=== PATIENT | female | born 1985 | race Two or more races ===

== ENCOUNTER 2021-11-16 22:39 | Emergency (ER) | payer BC, OTHER ==
[~2021-11-16] VITALS: Ht 157.5 cm; Wt 47.2 kg
--- NOTE | 2021-11-16 23:40 | NUR ---
BIBS FOR C/O UPPER ABD PAIN, NAUSEA AND DIARRHEA X 5 DAYS. TO ER BED 3. PLACED ON MONITOR,. VSS
[2021-11-17] MEDS ORDERED: MAG HYDROX/AL HYDROX/SIMETH 30 ML UDC ONE (00:08)
[2021-11-17] MEDS ORDERED: FAMOTIDINE/PF INJ 20 MG/2 ML VIAL IV ONE (00:08)
[2021-11-17] MEDS: MAG HYDROX/AL HYDROX/SIMETH 30 ML UDC PO ONE (00:13)
[2021-11-17] MEDS: IV LR 1000 ML 1,000 ML IV ONE (00:13)
[2021-11-17] MEDS: FAMOTIDINE/PF INJ 20 MG/2 ML VIAL IV ONE (00:13)
[2021-11-17 00:57] LABS: BASOPHILS % (AUTO) 0.2 % (0.0-2.0); EOSINOPHILS % (AUTO) 1.2 % (0.0-6.0); HEMATOCRIT 36 % (33-45); HEMOGLOBIN 12.3 g/dL (11.5-14.8); LYMPHOCYTES # (AUTO) 1.4 K/uL (0.8-4.8); LYMPHOCYTES % (AUTO) 45.8 % (20.0-44.0); MEAN CORPUSCULAR HGB CONC 34 g/dl (31.0-36.0); MEAN CORPUSCULAR VOLUME 91 fL (82-100); MONOCYTES # (AUTO) 0.5 K/uL (0.1-1.30); NEUTROPHILS # (AUTO) 1.2 K/uL (1.8-8.9); NEUTROPHILS % (AUTO) 37.8 % (43.0-81.0); PLATELET COUNT (AUTO) 207 K/uL (150-450); RED BLOOD CELL COUNT(AUTO) 3.99 MIL/uL (4.0-5.2); WHITE BLOOD COUNT (AUTO) 3.1 K/uL (4.3-11.0)
[2021-11-17 01:00] LABS: BILIRUBIN,URINE NEGATIVE (NEGATIVE); COLOR,URINE YELLOW (YELLOW); LEUKOCYTE ESTERASE ,URINE NEGATIVE (NEGATIVE); NITRITE, URINE NEGATIVE (NEGATIVE); PROTEIN,URINE NEGATIVE (NEGATIVE); UGLUCOSE NEGATIVE (NEGATIVE); UROBILINOGEN,URINE 0.2 EU/dL (0.2)
[2021-11-17 01:17] LABS: ALBUMIN 3.3 g/dL (3.4-5.0); BILIRUBIN,DIRECT 0.1 mg/dL (0.0-0.2); BILIRUBIN,TOTAL 0.4 mg/dL (0.2-1.0); CALCIUM, SERUM 8.3 mg/dL (8.5-10.1); CREATININE 0.6 mg/dL (0.6-1.3); POTASSIUM 3.5 mmol/L (3.5-5.1); TOTAL PROTEIN, SERUM 7.1 g/dL (6.4-8.2)
--- NOTE | 2021-11-17 01:25 | NUR ---
COVID SWAB DONE AND SENT TO LAB.
--- NOTE | 2021-11-17 02:37 | NUR ---
CALLED WINTER FOR X RAY READ
[2021-11-17] MEDS ORDERED: ONDA4TAB5 PO (03:08)
[2021-11-17] MEDS ORDERED: MAG355OR18 PO (03:08)
[2021-11-17] MEDS ORDERED: FAMO-141 PO (03:08)
[2021-11-17 03:17] VITALS: BP 142/75
--- NOTE | 2021-11-17 03:27 | NUR ---
IV removed. Catheter intact and site benign. Pressure and 4x4 applied to site. No bleeding noted.Patient discharged to home in stable condition. Written and verbal after care instructions given. Patient verbalizes understanding of instruction.
== END 2021-11-17 03:28 | disposition home or self-care (01) ==
LOC: EDBD 22:41 → ER 22:41
DX: R10.13 Epigastric pain (principal); D72.819 Decreased white blood cell count, unspecified; Z20.822 Contact with and (suspected) exposure to COVID-19; R19.7 Diarrhea, unspecified; R14.0 Abdominal distension (gaseous); J45.909 Unspecified asthma, uncomplicated; Z98.890 Other specified postprocedural states; Z79.899 Other long term (current) drug therapy
CPT/HCPCS: 36415; 74021; 80048; 80076; 81003; 83690; 83735; 84703; 85007; 85025; 87426; 96361; 96374; 99284; C9803; J3490; J7120 ×2